=== PATIENT | male | born 1935 | race Caucasian/White ===

== ENCOUNTER 2017-09-30 06:50 | Outpatient (CLI) | payer MEDICARE ==
--- NOTE | 2017-09-30 09:51 | MRI ---
PRE AND POST CONTRAST ENHANCED MRI IMAGES OF THE BRAIN: History: Right sided meningioma. D32.9 and D33.2 Technique: Multiplanar, multisequence pre and post contrast enhanced MRI images of the brain obtained . FINDINGS: Images again demonstrate a right sided dural based frontal intracranial mass. The size and shape is n ot significantly changed. The lesion has dural based tails compatible with the patient's known histor y of meningioma. No significant adjacent brain edema is seen. There is some diffuse cortical atrophy and deep white ma tter ischemic changes. Old areas of stroke with gliosis and encephalomalacia changes seen in the left posterior frontal and left parietal regions also unchanged since the previous comparison exam. An old area of stroke is seen in the right posterior cerebellum. IMPRESSION: 1. Stable right frontal dural based meningioma. 2. 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 No newly developed masses or lesions seen. POS: [facility]
[2017-09-30] MEDS ORDERED: Gadobenate Dimeglumine 529 MG/1 ML (20ML VIAL) ONE (12:51)
== END 2017-09-30 06:51 | disposition home or self-care (01) ==
LOC: MRI 06:50
PROVIDERS: ATTEND Neurological Surgery
DX: D33.2 Benign neoplasm of brain, unspecified (principal)
CPT/HCPCS: 70553; 82565; A9579

== ENCOUNTER 2017-10-01 14:47 | Outpatient (CLI) | payer MEDICARE ==
--- NOTE | 2017-10-01 16:24 | MRI ---
MRI CERVICAL SPINE WITHOUT IV CONTRAST: DATE: 10/01/17. HISTORY: Cervical radiculopathy. The patient complains of neck pain, numbness, and tingling with complaints o f numbness and tingling in the upper extremities. COMPARISON: None available. FINDINGS: There is mild volume loss involving the visualized cerebellar hemispheres. Cervicomedullary junction has a normal appearance. There is pannus formation with degenerative changes present at the articul ation of the odontoid and anterior arch of C1. There is loss of intervertebral disk height at all levels of the cervical spine. There are end plate degenerative changes also present at multiple levels. There is otherwise normal signal intensity de monstrated in the bone marrow. There is mild disk-osteophyte complex without significant narrowing of the central spinal canal. Mil d facet degenerative changes are seen on the left, and there is mild left-sided neural foraminal narr owing. The right neural foramen is patent. C3-4 level: There is a broad-based disk-osteophyte complex with mild facet hypertrophic changes. Th ere is mild narrowing of the central spinal canal with mild flattening of the anterior aspect of the spinal cord, but normal signal intensity is present in the spinal cord. The neural foramina do appe ar patent. C4-5 level: There is a broad-based disk-osteophyte complex with uncinate process hypertrophy present bilaterally. There is mild generalized narrowing of the central spinal canal with mild to moderate right and at least moderate left-sided neural foraminal narrowing. C5-6 level: There is a broad-based disk-osteophyte complex eccentric to the right with what is likel y prominent right-sided uncinate process hypertrophy resulting in moderate to severe right-sided neur al foraminal narrowing. There is mild generalized narrowing of the central spinal canal with greater mass effect on the right anterolateral aspect of the ventral subarachnoid space. There is mild to m oderate left-sided neural foraminal narrowing. C6-7 level: There is a broad-based disk-osteophyte complex and mild facet degenerative changes. The re is mild bilateral neural foraminal narrowing; although, the degree of neural foraminal narrowing o n the left does approach moderate in severity. There is mild narrowing of the central spinal canal. IMPRESSION: Multilevel degenerative changes in the cervical spine. There is mild straightening/slight reversal o f the normal cervical lordotic curvature centered at the level of the C4 vertebral body. POS: [facility]
== END 2017-10-01 14:48 | disposition home or self-care (01) ==
LOC: MRI 14:47
PROVIDERS: ATTEND Neurological Surgery
DX: M47.22 Other spondylosis with radiculopathy, cervical region (principal)
CPT/HCPCS: 72141